=== PATIENT | female | born 1990 | race Two or more races ===

== ENCOUNTER 2021-04-01 21:23 | Emergency (ER) | payer SELFPAY ==
[~2021-04-01] VITALS: Ht 170.2 cm; Wt 71.3 kg
--- NOTE | 2021-04-01 21:50 | NUR ---
PT PRESENTED TO THE ER WITH VAGINAL BLEEDING. PT HAD A POSITIVE TEST ON Saturday03/27/21. PT'S FDLMP IS 02/26/21, PT ABOUT 5 WEEKS ALONG. PT HOOKED UP TO MONITOR, ERP PRESENT IN ROOM. PT RESTING COMFORTABLY ON GURNEY.
[2021-04-01 22:04] LABS: BASOPHILS % (AUTO) 0 % (0-1); EOSINOPHILS % (AUTO) 0 % (1-7); LYMPHOCYTES % (AUTO) 47 % (22-44); MEAN CORPUSCULAR HEMOGLOBIN 29.5 pg (27.0-34.8); MEAN CORPUSCULAR HGB CONC 34.2 g/dL (32.4-35.8); MEAN PLATELET VOLUME 8.6 fL (7.4-10.4); MONOCYTES % (AUTO) 13 % (2-9); NEUTROPHILS % (AUTO) 40 % (42-75); PLATELET COUNT 180 x10^3/uL (130-400); RED BLOOD COUNT 4.73 x10^6/uL (3.82-5.3)
--- NOTE | 2021-04-01 22:11 | NUR ---
PT TO US
[2021-04-01 22:17] LABS: ALBUMIN 3.6 g/dL (3.4-5.0); ANION GAP 7 mmol/L (5-15); CALCIUM 8.3 mg/dL (8.5-10.1); CHLORIDE 107 mmol/L (98-107)
--- NOTE | 2021-04-01 22:21 | NUR ---
PT RETURNED FROM US
[2021-04-01 22:24] LABS: ALANINE AMINOTRANSFERASE 30 U/L (12-78); ALKALINE PHOSPHATASE 92 U/L (45-117); BILIRUBIN,TOTAL 0.3 mg/dL (0.2-1.0); CREATININE 0.54 mg/dL (0.55-1.02); TOTAL PROTEIN 7.1 g/dL (6.4-8.2)
[2021-04-01 22:36] LABS: MD SCAN
[2021-04-01 22:50] LABS: MICROSCOPIC INDICATED
[2021-04-01 23:55] VITALS: BP 124/82
--- NOTE | 2021-04-01 23:59 | NUR ---
Patient given discharge instructions and they have confirmed that they understand the instructions. Patient ambulatory with steady gait.
== END 2021-04-02 00:09 | disposition home or self-care (01) ==
LOC: ED 23:30
DX: O20.0 Threatened abortion (principal); O26.891 Other specified pregnancy related conditions, first trimester; N83.291 Other ovarian cyst, right side; Z32.01 Encounter for pregnancy test, result positive; Z3A.01 Less than 8 weeks gestation of pregnancy
CPT/HCPCS: 36415; 76856; 80053; 81001; 84702; 85025; 86901; 87086; 99284